=== PATIENT | male | born 1950 | race Caucasian/White ===

== ENCOUNTER 2024-04-11 12:44 | Emergency (ER) | payer MEDICARE, OTHER, SELFPAY ==
[2024-04-11 12:45] VITALS: BP 148/79; PULSE 48; RESP 20; TEMP 35.3; O2SAT 99; BMI 28.5
--- NOTE | 2024-04-11 13:03 | EKG12_ITS ---
Test Reason : SYNCOPE Blood Pressure : / mmHG Vent. Rate : 048 BPM Atrial Rate : 048 BPM P-R Int : 156 ms QRS Dur : 098 ms QT Int : 504 ms P-R-T Axes : 029 -05 009 degrees QTc Int : 450 ms Sinus bradycardia Otherwise normal ECG Confirmed by ACE LEIVA, LINDSAY ([id number]), assistant editor JACE GARZA ([id number]) on 04/12/2024 10:05:02 AM Referred By: ELVIN/ORVILLE Confirmed By:LINDSAY BELLO MD
--- NOTE | 2024-04-11 13:03 | RAD_ITS ---
STUDY: X-RAY CHEST REASON FOR EXAM: Male, 73 years old. Weakness. TECHNIQUE: Frontal view of the chest COMPARISON: None. FINDINGS: The lungs are clear. There are no pleural effusions. There is no pneumothorax. The heart is normal in size. The visualized osseous structures are within normal limits. RAD/Chest 1 View (Portable) IMPRESSION: No acute thoracic pathology. Electronically Signed: Jimmie Calderno MD at 13:35 EDT ,
[2024-04-11] MEDS: 0.9% Normal Saline (1000mL) 1,000 ML 999 ML IV (13:11)
--- NOTE | 2024-04-11 13:14 | EX.ED.DYSGE1 ---
HPI <ANNABELLE Bridges - Last Filed: 04/11/24 14:52> History of Present Illness Chief Complaint: Weakness Narrative Narrative: 73-year-old male with PMH of HTN, HLD, DM2 presents with vertigo. He states around 6 AM he rolled over in bed and the room seemed like it was moving. When he tries to walk he feels off balance and has to hold onto things and it triggers nausea and vomiting. He feels better if he lies still or closes his eyes. No chest pain or shortness of breath. He states his blood sugar this morning was 250 and was trending down to 200. He had a similar vertigo episode a month ago and saw Dr. March and ENT who recommended an MRI but he did not pursue this since his symptoms resolved. PFS <ANNABELLE Bridges - Last Filed: 04/11/24 14:52> [facility] Medical History (Updated 04/11/24 @ 14:52 by ANNABELLE Bridges) Mild intermittent asthma without complication BPH (benign prostatic hyperplasia) Hyperlipemia Hypertension Diabetes Home Medications ?Medication ?Instructions ?Recorded ?Last Taken ?Type meclizine 25 mg tablet 25 mg PO 4X/DAY PRN PRN Dizziness 04/11/24 Unknown Rx #20 tabs ondansetron 4 mg disintegrating 4 mg PO Q8H PRN PRN Nausea #10 tabs 04/11/24 Unknown Rx tablet Allergy/AdvReac Type Severity Reaction Status Date / Time lisinopril Allergy Mild Cough Verified 04/11/24 14:06 Social History Smoking Status: Former smoker ROS <ANNABELLE Bridges - Last Filed: 04/11/24 14:52> ROS ED ROS Narrative Constitutional: Negative for fever, chills, malaise. Eyes: Negative for vision loss, diplopia. CVS: Negative for palpitations, chest pain, syncope. Respiratory: Negative for shortness of breath. GI: Positive for nausea, vomiting. Neuro: Negative for headache, motor/sensory dysfunction. EXAM <ANNABELLE Bridges - Last Filed: 04/11/24 14:52> Physical Exam Narrative Exam Narrative: CONST: Patient sitting in no acute distress. EYES: Normal inspection. EOMI, 3-4 beats rightward horizontal nystagmus. ENT: Normal inspection, moist mucous membranes. NECK: Normal inspection. RESP: No respiratory distress, CTAB. CVS: Regular rate and rhythm, no murmur, no gallop. SKIN: Color normal, no rash, warm, dry, intact. EXTREMITIES: Normal appearance, no pedal edema. NEURO: Alert and answering questions appropriately. 5/5 upper and lower extremity strength, normal finger-nose and [id number]. PSYCH: Normal affect. Const Vital Signs: 04/11/24 12:45 04/11/24 12:53 04/11/24 13:45 Temperature 95.6 F L Temperature Source Temporal Pulse Rate 48 L 67 Pulse Rate [Lying] Pulse Rate [Sitting (for 1 minute prior to obtaining)] Pulse Rate [Standing (for 1 minute prior to obtaining)] Respiratory Rate 20 H 18 Respiratory Effort Normal Respiratory Pattern Normal Blood Pressure 148/79 H 145/69 H Blood Pressure [Lying] Blood Pressure [Sitting (for 1 minute prior to obtaining)] Blood Pressure [Standing (for 1 minute prior to obtaining)] Blood Pressure Mean 102 94 Blood Pressure Mean [Lying] Blood Pressure Mean [Sitting (for 1 minute prior to obtaining)] Blood Pressure Mean [Standing (for 1 minute prior to obtaining)] Pulse Ox 99 97 Oxygen Delivery Method Room Air 04/11/24 14:00 04/11/24 14:37 04/11/24 14:55 Temperature 97.6 F L Temperature Source Pulse Rate 67 55 L Pulse Rate [Lying] 63 Pulse Rate [Sitting (for 1 minute prior to obtaining)] 51 L Pulse Rate [Standing (for 1 minute prior to obtaining)] 57 L Respiratory Rate 18 17 Respiratory Effort Respiratory Pattern Blood Pressure 152/73 H 143/74 H Blood Pressure [Lying] 152/73 H Blood Pressure [Sitting (for 1 minute prior to obtaining)] 151/66 H Blood Pressure [Standing (for 1 minute prior to obtaining)] 143/74 H Blood Pressure Mean 99 97 Blood Pressure Mean [Lying] 99 Blood Pressure Mean [Sitting (for 1 minute prior to obtaining)] 94 Blood Pressure Mean [Standing (for 1 minute prior to obtaining)] 97 Pulse Ox 98 96 Oxygen Delivery Method Room Air <Dr. Mumtaz Barajas MD - Last Filed: 04/11/24 14:58> Physical Exam Const Vital Signs: 04/11/24 12:45 04/11/24 12:53 04/11/24 13:45 Temperature 95.6 F L Temperature Source Temporal Pulse Rate 48 L 67 Pulse Rate [Lying] Pulse Rate [Sitting (for 1 minute prior to obtaining)] Pulse Rate [Standing (for 1 minute prior to obtaining)] Respiratory Rate 20 H 18 Respiratory Effort Normal Respiratory Pattern Normal Blood Pressure 148/79 H 145/69 H Blood Pressure [Lying] Blood Pressure [Sitting (for 1 minute prior to obtaining)] Blood Pressure [Standing (for 1 minute prior to obtaining)] Blood Pressure Mean 102 94 Blood Pressure Mean [Lying] Blood Pressure Mean [Sitting (for 1 minute prior to obtaining)] Blood Pressure Mean [Standing (for 1 minute prior to obtaining)] Pulse Ox 99 97 Oxygen Delivery Method Room Air 04/11/24 14:00 04/11/24 14:37 04/11/24 14:55 Temperature 97.6 F L Temperature Source Pulse Rate 67 55 L Pulse Rate [Lying] 63 Pulse Rate [Sitting (for 1 minute prior to obtaining)] 51 L Pulse Rate [Standing (for 1 minute prior to obtaining)] 57 L Respiratory Rate 18 17 Respiratory Effort Respiratory Pattern Blood Pressure 152/73 H 143/74 H Blood Pressure [Lying] 152/73 H Blood Pressure [Sitting (for 1 minute prior to obtaining)] 151/66 H Blood Pressure [Standing (for 1 minute prior to obtaining)] 143/74 H Blood Pressure Mean 99 97 Blood Pressure Mean [Lying] 99 Blood Pressure Mean [Sitting (for 1 minute prior to obtaining)] 94 Blood Pressure Mean [Standing (for 1 minute prior to obtaining)] 97 Pulse Ox 98 96 Oxygen Delivery Method Room Air [facility] <ANNABELLE Bridges - Last Filed: 04/11/24 14:52> [facility] Narrative Medical decision making narrative: History from: Patient and family members Differential: Peripheral versus central vertigo, orthostatic hypotension, electrolyte abnormality, cardiac etiology Patient presents with vertigo and nausea and vomiting that started this morning. He had a similar episode a month ago that resolved on its own. He appears well and nontoxic. Vital signs stable, he is in normal sinus rhythm in the 40-50s. He has rightward horizontal nystagmus and an normal neurological exam. He does have significant difficulty with balance and ambulation secondary to vertigo. CBC unremarkable. BMP notable for glucose of 294 with normal electrolytes and no DKA. He was treated with IV fluids. EKG is sinus rhythm with no ischemic changes and troponin is 5. CXR shows no acute process. Patient was treated with meclizine while CTA of the head/neck was obtained. CTA shows less than 50% bilateral carotid artery plaque formation. No other acute findings. After IV fluids and meclizine he feels improved. Orthostatic vital signs checked and are negative. He was able to ambulate to the restroom without assistance. This may have been peripheral vertigo and I prescribed meclizine and Zofran as needed. I recommend he follow-up with PCP and ENT and discussed return precautions. He was discharged in stable condition. Lab Data Attestation: I reviewed the patient's lab results. Labs: Laboratory Results - last 24 hr 04/11/24 12:55 WBC 10.4 RBC 4.30 L Hgb 14.0 Hct 41.3 MCV 96.0 H MCH 32.6 H MCHC 33.9 RDW Std Deviation 40.2 RDW Coeff of Luc[place] 11.5 L Plt Count 222 MPV 10.2 Immature Gran % (Auto) 0.300 Neut % (Auto) 87.6 H Lymph % (Auto) 9.8 L [place] % (Auto) 2.1 Eos % (Auto) 0.1 Baso % (Auto) 0.1 Absolute Neuts (auto) 9.1 H Absolute Lymphs (auto) 1.02 Nucleated RBC % 0 Sodium 140 Potassium 3.8 Chloride 104 Carbon Dioxide 29.0 Anion Gap 7 BUN 16 Creatinine 1.02 Estim Creat Clear Calc 72.76 Est GFR (MDRD) Af Amer 92 Est GFR (MDRD) Non-Af 76 BUN/Creatinine Ratio 15.7 Glucose 294 H Calcium 9.4 Troponin I High Sens 5 Radiography Diagnostic Testing: Clinical Impression(s) from Imaging Studies Chest X-Ray 04/11/24 13:03 IMPRESSION: No acute thoracic pathology. Electronically Signed: Jimmie Calderon MD at 13:35 EDT , Head/Neck CTA 04/11/24 13:32 IMPRESSION: There is mild atherosclerotic plaque formation of the origin of the right and left internal carotid artery with less than 50% cross sectional diameter stenosis. ALL ABOVE CRITERIA BY NASCET. ALL ABOVE CRITERIA BY NASCET. Electronically Signed: Jorge Parra MD at 14:33 EDT , ED attending interpretation of 1-view chest x-ray shows normal heart size, no acute infiltrate, edema, or effusion. EKG Initial EKG: Attestation: I personally reviewed and interpreted this EKG as follows: Interpretation: No Acute Injury Pattern and Sinus Bradycardia Comments: Sinus bradycardia at 40 bpm Normal intervals, no acute ischemic changes <Dr. Mumtaz Barajas MD - Last Filed: 04/11/24 14:58> MDM MDM Narrative Medical decision making narrative: History from: Patient and family members Differential: Peripheral versus central vertigo, orthostatic hypotension, electrolyte abnormality, cardiac etiology Patient presents with vertigo and nausea and vomiting that started this morning. He had a similar episode a month ago that resolved on its own. He appears well and nontoxic. Vital signs stable, he is in normal sinus rhythm in the 40-50s. He has rightward horizontal nystagmus and an normal neurological exam. He does have significant difficulty with balance and ambulation secondary to vertigo. CBC unremarkable. BMP notable for glucose of 294 with normal electrolytes and no DKA. He was treated with IV fluids. EKG is sinus rhythm with no ischemic changes and troponin is 5. CXR shows no acute process. Patient was treated with meclizine while CTA of the head/neck was obtained. CTA shows less than 50% bilateral carotid artery plaque formation. No other acute findings. After IV fluids and meclizine he feels improved. Orthostatic vital signs checked and are negative. He was able to ambulate to the restroom without assistance. This may have been peripheral vertigo and I prescribed meclizine and Zofran as needed. I recommend he follow-up with PCP and ENT and discussed return precautions. He was discharged in stable condition. I have personally performed a face to face assessment of the patient and have reviewed the SOFIA Note. I performed a substantive portion of the visit including all aspects of the following. My shaw findings include: History is 73-year-old diabetic male history of prior vertigo had onset of weakness today. It was kind diffuse general. Said he felt lightheaded. Denies any headache, chest pain, shortness of breath or recent illness. Exam is [well-appearing 73-year-old male. Vital signs stable afebrile. Pulse ox 99% room air no signs hypoxia. No distress. Family at bedside. HEENT exam unremarkable. Normal speech. No facial droop. No trauma. Neck nontender. No bruits. Lungs clear to auscultation bilaterally. Heart regular rhythm rate about 60 no murmur. Chest wall and ribs nontender. Abdomen soft nontender. Moving all 4 extremities. 5-5 petrography teacher strength. Dorsi plantarflexion intact. Neurologic exam normal. Negative Hallpike maneuver. Normal speech. No facial droop. Fingertip to nose and [id number] within normal limits. NIH 0.] Medical Decision Making [73-year-old male benign exam. Workup negative. Orthostatic vital signs negative. To be discharged home.] Other additions or changes: [None] History & Record Review Discussion w/independent historian: Patient and Family Additional record(s) reviewed:: Prior inpatient record, Prior outpatient record, Prior ED visit and Prior labs Lab Data Lab results narrative: CBC shows a white count of 10. H&H 14 and 41. Platelets 222. Electrolytes unremarkable gap 7. Normal BUN and creatinine. Glucose 294. He is a known diabetic. Troponin is normal at 5. Labs: Laboratory Results - last 24 hr 04/11/24 12:55 WBC 10.4 RBC 4.30 L Hgb 14.0 Hct 41.3 MCV 96.0 H MCH 32.6 H MCHC 33.9 RDW Std Deviation 40.2 RDW Coeff of [place] 11.5 L Plt Count 222 MPV 10.2 Immature Gran % (Auto) 0.300 Neut % (Auto) 87.6 H Lymph % (Auto) 9.8 L [place] % (Auto) 2.1 Eos % (Auto) 0.1 Baso % (Auto) 0.1 Absolute Neuts (auto) 9.1 H Absolute Lymphs (auto) 1.02 Nucleated RBC % 0 Sodium 140 Potassium 3.8 Chloride 104 Carbon Dioxide 29.0 Anion Gap 7 BUN 16 Creatinine 1.02 Estim Creat Clear Calc 72.76 Est GFR (MDRD) Af Amer 92 Est GFR (MDRD) Non-Af 76 BUN/Creatinine Ratio 15.7 Glucose 294 H Calcium 9.4 Troponin I High Sens 5 Radiography Chest X-Ray - ED: 1 View, Read by ED Physician, Read by Radiologist, Normal, Heart, Lungs, Mediastinum, Bony Structures, No Acute Disease and Chronic Changes Diagnostic Testing: Clinical Impression(s) from Imaging Studies Chest X-Ray 04/11/24 13:03 IMPRESSION: No acute thoracic pathology. Electronically Signed: Jimmie Calderon MD at 13:35 EDT , Head/Neck CTA 04/11/24 13:32 IMPRESSION: There is mild atherosclerotic plaque formation of the origin of the right and left internal carotid artery with less than 50% cross sectional diameter stenosis. ALL ABOVE CRITERIA BY NASCET. ALL ABOVE CRITERIA BY NASCET. Electronically Signed: Jorge Parra MD at 14:33 EDT , Discharge Plan Triage Chief Complaint: Weakness ED Midlevel Provider: Jyoti Crow ED Provider: Mumtaz Barajas Dx/Rx/DC Orders Clinical Impression: Vertigo, Hyperglycemia due to diabetes mellitus, Nausea and vomiting Instructions: Dizziness Fainting Causes, ED Vertigo, Unspecified Prescriptions: New meclizine 25 mg tablet 25 mg PO 4X/DAY PRN PRN (Reason: Dizziness) Qty: 20 0RF ondansetron 4 mg tablet,disintegrating 4 mg PO Q8H PRN PRN (Reason: Nausea) Qty: 10 0RF Primary Care Provider: Garrick Menard Referrals: Garrick Menard MD [Primary Care Provider] - Activity Restrictions/Additional Instructions: You can take meclizine as needed for vertigo. Your CT scan showed mild plaque formation in both of your carotid arteries which can be monitored by your primary care doctor. Follow up with PCP or ENT. Return if symptoms worsen. Print Language: Swedish Disposition Disposition: Home, Self Care
[2024-04-11] MEDS: Meclizine HCl 25 MG Tablet PO (13:20)
[2024-04-11 13:21] LABS: Absolute Lymphocyte Count 1.02 X10^3/uL (0.83-4.51); Absolute Neutrophil Count 9.1 X10^3/uL (2.0-7.7); Basophil# 0.01 X10^3/uL; Basophil% 0.1 % (0-1); Eosinophil# 0.01 X10^3/uL; Eosinophils% 0.1 % (0-5); Hematocrit 41.3 % (40-54); Lymphocyte # 1.02 X10^3/ul (0.83-4.51); Lymphocyte % 9.8 % (19-41); Mean Corp Hgb Conc 33.9 g/dL (32-36); Mean Corpuscular Hgb 32.6 pg (27.0-32.0); Mean Platelet Vol. 10.2 fl (6.2-12.0); Monocyte# 0.22 X10^3/uL; Monocyte% 2.1 % (0-10); NRBC Flagged by Analyzer 0 % (0-5); Neutrophil % 87.6 % (47-70); Platelet Count 222 K/mm3 (150-450); RBC Distribution Width CV 11.5 % (11.6-14.6); RBC Distribution Width SD 40.2 fl (35.1-43.9); White Blood Count 10.4 K/mm3 (4.4-11.0)
[2024-04-11 13:29] LABS: Anion Gap 7 (5-15); BUN 16 mg/dL (7-18); BUN/Creat Ratio 15.7 RATIO (10-20); Calcium,Total 9.4 mg/dL (8.5-10.1); Chloride 104 mmol/L (98-107); Creatinine, Serum 1.02 mg/dL (0.70-1.30); EST Glomerular Filtration Rate 76 mL/min (>60); Est Glom Filt Rate - Afr Amer 92 mL/min (>60); Estimated Creatinine Clearance 72.76 ml/min; Glucose 294 mg/dL (74-106); Potassium 3.8 mmol/L (3.5-5.1); Sodium Level 140 mmol/L (136-145); Troponin-I HS 5 pg/mL (3.0-78.0)
--- NOTE | 2024-04-11 13:32 | CT_ITS ---
STUDY: CTA OF THE BRAIN REASON FOR EXAM: Male, 73 years old. VERTIGO TECHNIQUE: CT angiography was performed with a multi-detector CT scanner. Data acquisition was obtained from the skull base through the vertex following intravenous administration of IV 100mL Isovue-370 contrast. MIP images were reconstructed from the axial data set. Post-processing of the angiographic images was performed, with multiplanar reformation and 3D reconstruction. MIPS images were obtained. Analyzed with [email or web address] Individualized dose optimization techniques were used for this CT. COMPARISON: None. FINDINGS: Normal bilateral petrous carotid arteries. There is calcified plaque formation of the right cavernous carotid artery, with a mild stenosis (less than 50%). There is calcified plaque formation of the left cavernous carotid artery, with a mild stenosis (less than 50%). 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 Normal left A1 segments of the anterior cerebral artery. Normal intact anterior communicating artery (ACOM). Normal bilateral A2 segments of the anterior cerebral arteries. Normal right M1 and M2 segments of the middle cerebral arteries, with a normal M1 bifurcation. Normal left M1 and M2 segments of the middle cerebral arteries, with a normal M1 bifurcation. Normal right posterior communicating artery (PCOM). Normal left posterior communicating artery (PCOM). Normal bilateral vertebral arteries. Normal basilar artery with a normal basilar bifurcation. The visualized bilateral superior cerebellar (SCA) arteries are normal. Normal bilateral P1, P2 and visualized P3 segments of the posterior cerebral arteries. There is no demonstrated aneurysm of the [place]. Normal size ventricles and extra-axial spaces for the patient''s age. Normal white matter tracts of the cerebral hemispheres. Normal basal ganglia and thalami. Normal brainstem. Normal cerebellum. IMPRESSION: There is calcified plaque formation of the right cavernous carotid artery, with a mild stenosis (less than 50%). There is calcified plaque formation of the left cavernous carotid artery, with a mild stenosis (less than 50%). ALL ABOVE CRITERIA BY NASCET. STUDY: CTA NECK WITH CONTRAST REASON FOR EXAM: Male, 73 years old. VERTIGO Individualized dose optimization techniques were used for this CT. TECHNIQUE: CT angiography with multi-detector data acquisition was performed from the aortic arch to the skull base following intravenous administration of IV 100mL Isovue-370 contrast. MIP images were reconstructed from the axial data set. Post-processing of the angiographic images was performed, with multiplanar reformation and 3D reconstruction. Analyzed with [email or web address] COMPARISON: None. FINDINGS: Degenerative changes in the cervical spine. AORTIC ARCH: There is atherosclerotic calcific plaque formation of the aortic arch and great vessels arising from the aortic arch, without a hemodynamically significant stenosis. There is a normal origin of the brachiocephalic, left common carotid, and left subclavian arteries. Normal origins of the brachiocephalic, left common carotid, and left subclavian arteries. RIGHT CAROTID ARTERIES: Normal right common carotid artery (CCA). Normal right common carotid bulb. There is mild atherosclerotic plaque formation of the origin of the right internal carotid artery with less than 50% cross sectional diameter stenosis. Normal visualized cervical portion of the right internal carotid artery. Normal origin of the right external carotid artery (ECA). LEFT CAROTID ARTERIES: Normal left common carotid artery (CCA). Normal left common carotid bulb. There is mild atherosclerotic plaque formation of the origin of the left internal carotid artery with less than 50% cross sectional diameter stenosis. Normal visualized cervical portion of the left internal carotid artery. Normal origin of the left external carotid artery (ECA). VERTEBRAL ARTERIES: Normal bilateral vertebral arteries. CT/CTA Head AND Neck W/ Contrast IMPRESSION: There is mild atherosclerotic plaque formation of the origin of the right and left internal carotid artery with less than 50% cross sectional diameter stenosis. ALL ABOVE CRITERIA BY NASCET. ALL ABOVE CRITERIA BY NASCET. Electronically Signed: Jorge Parra MD at 14:33 EDT ,
[2024-04-11 13:45] VITALS: BP 145/69; PULSE 67; RESP 18; O2SAT 97
[2024-04-11 14:00] VITALS: BP 152/73; PULSE 67; RESP 18; O2SAT 98
[2024-04-11 14:37] VITALS: BP 143/74; BP 151/66; BP 152/73; PULSE 51; PULSE 57; PULSE 63
[2024-04-11 14:55] VITALS: BP 143/74; PULSE 55; RESP 17; TEMP 36.4; O2SAT 96
[2024-04-11 15:00] VITALS: BP 136/59; PULSE 51; RESP 14; TEMP 36.4; O2SAT 100
== END 2024-04-11 15:20 | disposition home or self-care (01) ==
PROVIDERS: Physician Assistant; Emergency Provider Emergency Medicine; PCP Family Medicine; Visit Provider Emergency Medicine
DX: R42 Dizziness and giddiness (principal); E11.65 Type 2 diabetes mellitus with hyperglycemia; R11.2 Nausea with vomiting, unspecified; R53.1 Weakness; E78.5 Hyperlipidemia, unspecified; Z87.891 Personal history of nicotine dependence; I10 Essential (primary) hypertension; I65.23 Occlusion and stenosis of bilateral carotid arteries
CPT/HCPCS: 70496; 70498; 71045; 80048; 84484; 85025; 93005; 99284; J7030; Q9967; A4216